=== PATIENT | female | born 1945 | race Caucasian/White ===

== ENCOUNTER 2019-10-24 17:08 | Emergency (ER) | payer MEDICARE, OTHER ==
[~2019-10-24] VITALS: Ht 160 cm; Wt 68.0 kg
[2019-10-24 17:36] LABS: ABSOLUTE BASOPHILS 0.1 thou/uL (0.0-0.2); ABSOLUTE EOSINOPHILS 0.4 thou/uL (0.0-0.7); ABSOLUTE LYMPHOCYTES 2.7 thou/uL (0.8-5.3); ABSOLUTE MONOCYTES 0.8 thou/uL (0.0-1.2); ABSOLUTE NEUTROPHILS 6.2 thou/uL (1.6-8.1); BASOPHILS 1.2 %; EOSINOPHILS 3.8 %; HEMOGLOBIN 13.6 gm/dL (12.0-15.0); LYMPHOCYTES 26.4 %; MCH 30.4 pg (26.0-34.0); MCHC 34.1 g/dL (28.0-37.0); MONOCYTES 7.8 %; NUCLEATED RBCS 0 /100WBC; PLATELET COUNT* 336 thou/uL (150-400); POLYS 60.8 %; RBC 4.49 mil/uL (4.20-5.00); RDW-CV 14.5 % (10.5-14.5); WBC 10.2 thou/uL (4.0-11.0)
[2019-10-24 17:45] LABS: APTT 26.8 Seconds (25.0-31.3); PROTIME 10.2 Seconds (9.20-11.50)
[2019-10-24 18:47] VITALS: BP 162/67
--- NOTE | 2019-10-25 07:49 | EKG ---
[place] [address] ELECTROCARDIOGRAM REPORT Name: TEREZA ORANTES Room: [facility]#: [id number] Admission: 10/24/19 Attend Phys: Discharge: 10/24/19 Date of : 41 Report #: [id number] THIS REPORT FOR: //name// [facility] ED Test Date: 2019-10-24 Test Time: 17:18:27 Pat Name: TEREZA ORANTES Department: Room: Gender: F Web Designer: : 1945 Requested By: Akil Piña Order Number: [id number] MD: Beau Singh Measurements Intervals [place] Rate: 85 P: 50 FL: 170 QRS: -39 QRSD: 127 T: 110 QT: 386 QTc: 459 Interpretive Statements Sinus rhythm left axis artifact noted Left bundle branch block No previous ECG available for comparison Electronically Signed On 10-25-2019 7:49:27 [employer] by Beau Singh [email or web address] <ELECTRONICALLY SIGNED> By: Beau Singh MD, [facility] 10/25/19 0749 1718 1718 Beau Singh MD, FACC /EPI
== END 2019-10-24 18:53 | disposition home or self-care (01) ==
LOC: M.ERS 17:08
PROVIDERS: Family Medicine
DX: G45.9 Transient cerebral ischemic attack, unspecified (principal); Z86.73 Personal history of transient ischemic attack (TIA), and cerebral infarction without residual deficits